=== PATIENT | female | born 1950 | race Caucasian/White ===

== ENCOUNTER → 2019-01-11 | Outpatient (CLI) | payer MEDICARE, OTHER, BC ==
--- NOTE | 2019-01-11 14:12 | REP ---
LEFT WRIST SERIES: Four views. HISTORY: Pain. FINDINGS: Four views of the left wrist demonstrate swelling and discontinuity at the dorsal cortex of the distal radial metaphysis consistent with a recent fracture. No ulnar fracture is seen. No carpal injury is observed. There is some degenerative narrowing of the navicular multangular articulation. IMPRESSION: Findings consistent with a buckle fracture of the dorsal cortex of the distal radial metaphysis with associated swelling. This should be correlated with history and area of tenderness to palpation. Electronically Signed by Naveen Foster MD 01/11/2019 03:21 P
== END ==
LOC: M WUC 12:10
PROVIDERS: ATTEND Physician Assistant
DX: R93.6 Abnormal findings on diagnostic imaging of limbs (principal); M25.532 Pain in left wrist